=== PATIENT | male | born 1960 | race Caucasian/White ===

== ENCOUNTER 2019-01-19 15:22 | Emergency (ER) | payer MEDICARE ==
[~2019-01-19] VITALS: Ht 190.5 cm; Wt 80.0 kg
[2019-01-19 17:48] LABS: BASOPHILS % 0.5 % (0.0-2.0); EOSINOPHILS % 3.1 % (0.0-5.0); HEMATOCRIT. 32.8 % (42.0-52.0); HEMOGLOBIN. 10.8 g/dL (14.0-18.0); LYMPHOCYTES % 19.7 % (20.0-50.0); MEAN PLATELET VOLUME 7.5 fl (7.4-10.4); MONOCYTES % 6.1 % (2.0-8.0); NEUTROPHILS % 70.6 % (40.0-76.0); PLATELET 256 x1000/uL (130-400); RED BLOOD CELL COUNT 3.73 mill/uL (4.7-6.1); RED CELL DISTRIBUTION WIDTH 15.3 % (11.6-14.6)
[2019-01-19 17:49] LABS: CHLORIDE 110 mEq/L (98-107)
[2019-01-19 18:50] VITALS: BP 156/84
== END 2019-01-19 19:03 | disposition home or self-care (01) ==
LOC: ER 15:22 → CANBEDREQ 19:34
DX: E11.22 Type 2 diabetes mellitus with diabetic chronic kidney disease (principal); I12.9 Hypertensive chronic kidney disease with stage 1 through stage 4 chronic kidney disease, or unspecified chronic kidney disease; N18.9 Chronic kidney disease, unspecified; E87.5 Hyperkalemia; F17.210 Nicotine dependence, cigarettes, uncomplicated; G62.9 Polyneuropathy, unspecified
CPT/HCPCS: 36415; 71045; 93005; 99284

== ENCOUNTER 2019-04-04 11:19 | Emergency (ER) | payer MEDICARE ==
[~2019-04-04] VITALS: Ht 185.4 cm; Wt 80.0 kg
[2019-04-04 14:12] LABS: CLARITY URINE TURBID (CLEAR); COLOR URINE YELLOW (YELLOW); KETONES URINE NEGATIVE (NEGATIVE); LEUKOCYTE ESTERASE URINE 2+ (NEGATIVE); NITRITE URINE NEGATIVE (NEGATIVE); OCCULT BLOOD URINE 2+ (NEGATIVE); PH URINE 6.5 (4.5-8.0); PROTEIN URINE 3+ (NEGATIVE); SPECIFIC GRAVITY URINE 1.016 (1.005-1.030); UROBILINOGEN URINE 0.2 E.U./dL (0.2-1.0)
[2019-04-04 14:59] LABS: BASOPHILS % 0.4 % (0.0-2.0); EOSINOPHILS % 2.2 % (0.0-5.0); HEMATOCRIT. 31.8 % (42.0-52.0); HEMOGLOBIN. 10.5 g/dL (14.0-18.0); LYMPHOCYTES % 17.6 % (20.0-50.0); MEAN CORPUSCULAR HEMOGLOBIN 29.4 pg (28.0-32.0); MEAN PLATELET VOLUME 7.7 fl (7.4-10.4); MONOCYTES % 6.9 % (2.0-8.0); NEUTROPHILS % 72.9 % (40.0-76.0); PLATELET 269 x1000/uL (130-400); RED BLOOD CELL COUNT 3.57 mill/uL (4.7-6.1); RED CELL DISTRIBUTION WIDTH 14.5 % (11.6-14.6)
[2019-04-04 15:00] LABS: CHLORIDE 105 mEq/L (98-107)
[2019-04-04] MEDS ORDERED: CEFTRIAXONE 1 G PREMIX 50 ML IV ONE (15:00)
[2019-04-04 18:12] VITALS: BP 152/77
== END 2019-04-04 18:13 | disposition home or self-care (01) ==
LOC: ER 11:19
DX: N39.0 Urinary tract infection, site not specified (principal); I10 Essential (primary) hypertension; E10.8 Type 1 diabetes mellitus with unspecified complications; J44.9 Chronic obstructive pulmonary disease, unspecified; F17.200 Nicotine dependence, unspecified, uncomplicated
CPT/HCPCS: 36415; 71045; 76770; 80053; 81003; 83690; 83880; 85025; 87086; 96365; 99284; J0696; Z7610

== ENCOUNTER 2019-05-08 11:42 | Emergency (ER) | payer MEDICARE ==
[~2019-05-08] VITALS: Ht 190.5 cm; Wt 79.0 kg
[2019-05-08] MEDS ORDERED: SODIUM CHLORIDE 0.9% 1,000 ML IV ONE (21:08)
[2019-05-08] MEDS ORDERED: PHENAZOPYRIDINE HCL 100MG TABLET PO ONE (21:45)
[2019-05-08 22:02] LABS: BASOPHILS % 0.6 % (0.0-2.0); EOSINOPHILS % 2.7 % (0.0-5.0); HEMOGLOBIN. 11.6 g/dL (14.0-18.0); LYMPHOCYTES % 21.5 % (20.0-50.0); MEAN CORPUSCULAR HEMOGLOBIN 29.5 pg (28.0-32.0); MEAN CORPUSCULAR VOLUME 89.2 fL (80.0-94.0); MEAN PLATELET VOLUME 7.6 fl (7.4-10.4); MONOCYTES % 9.4 % (2.0-8.0); NEUTROPHILS % 65.8 % (40.0-76.0); PLATELET 303 x1000/uL (130-400); RED BLOOD CELL COUNT 3.92 mill/uL (4.7-6.1); RED CELL DISTRIBUTION WIDTH 15.1 % (11.6-14.6)
[2019-05-08 22:18] LABS: CHLORIDE 112 mEq/L (98-107)
[2019-05-08 22:24] LABS: PROTHROMBIN TIME 10.2 sec (9.6-11.0)
[2019-05-08 22:24] LABS: CLARITY URINE TURBID (CLEAR); COLOR URINE YELLOW (YELLOW); KETONES URINE NEGATIVE (NEGATIVE); LEUKOCYTE ESTERASE URINE 3+ (NEGATIVE); NITRITE URINE NEGATIVE (NEGATIVE); OCCULT BLOOD URINE 2+ (NEGATIVE); PH URINE 5.5 (4.5-8.0); PROTEIN URINE 4+ (NEGATIVE); SPECIFIC GRAVITY URINE 1.017 (1.005-1.030); UROBILINOGEN URINE 0.2 E.U./dL (0.2-1.0)
[2019-05-08] MEDS ORDERED: CEFTRIAXONE 1 G PREMIX 50 ML IV ONE (22:45)
[2019-05-08 23:59] VITALS: BP 154/85
== END 2019-05-09 00:38 | disposition home or self-care (01) ==
LOC: ER 11:42
DX: N39.0 Urinary tract infection, site not specified (principal); N20.0 Calculus of kidney; E11.9 Type 2 diabetes mellitus without complications; I10 Essential (primary) hypertension; F17.290 Nicotine dependence, other tobacco product, uncomplicated; Z98.890 Other specified postprocedural states
CPT/HCPCS: 36415; 74176; 80053; 81003; 82962; 83690; 85025; 85610; 87086; 96365; 99284; J0696; J7030; Z7610

== ENCOUNTER 2019-05-09 01:30 | Emergency (ER) | payer MEDICARE ==
[~2019-05-09] VITALS: Ht 190.5 cm; Wt 81.0 kg
[2019-05-09 03:06] LABS: CLARITY URINE TURBID (CLEAR); COLOR URINE DARK YELLOW (YELLOW); KETONES URINE NEGATIVE (NEGATIVE); LEUKOCYTE ESTERASE URINE 3+ (NEGATIVE); NITRITE URINE POSITIVE (NEGATIVE); OCCULT BLOOD URINE 2+ (NEGATIVE); PROTEIN URINE 3+ (NEGATIVE); SPECIFIC GRAVITY URINE 1.017 (1.005-1.030)
[2019-05-09 06:30] VITALS: BP 162/94
[2019-05-09] MEDS ORDERED: ACETAMINOPHEN WITH CODEINE 300/30MG TABLET PO ONE (07:00)
== END 2019-05-09 02:11 | disposition home or self-care (01) ==
LOC: ER 01:30
DX: R10.30 Lower abdominal pain, unspecified (principal); I10 Essential (primary) hypertension; E11.9 Type 2 diabetes mellitus without complications; Z87.440 Personal history of urinary (tract) infections
CPT/HCPCS: 81003; 99283